=== PATIENT | female | born 1985 | race African-American/Black ===

== ENCOUNTER 2017-10-06 17:08 | Emergency (ER) | payer BC, OTHER ==
[2017-10-06 17:28] VITALS: BP 113/73; PULSE 108; TEMP 100.2; BMI 30.1
[2017-10-06] MEDS ORDERED: ACETAMINOPHEN 325 MG TABLET (FP) PO ONE (17:28)
--- NOTE | 2017-10-06 17:29 | PDOC ---
Rapid Medical Evaluation Time Seen by Provider: 10/06/17 17:24 Medical Evaluation: Allergies Allergy/AdvReac Type Severity Reaction Status Date / Time No Known Allergies Allergy Verified 10/06/17 17:23 10/06/17 17:24 Pt. is 6 weeks and states that she is having fevers and headaches for one day. Pt. took Tylenol at 11am with little relief of her symptoms. Pt just returned from [place] on Wednesday. Denies vaginal bleeding. Exam: ambulatory, Temp 100.3 Orders: tylenol Pt to proceed to the ED for further evaluation. Discharge Disposition - Diagnosis Fever Qualifiers: Fever type: unspecified Qualified Code(s): R50.9 - Fever, unspecified - Referrals - Patient Instructions - Post Discharge Activity
--- NOTE | 2017-10-06 17:49 | PDOC ---
History of Present Illness - General Chief Complaint: Headache Stated Complaint: FEVER/6 WKS Time Seen by Provider: 10/06/17 17:24 - History of Present Illness Initial Comments: 32 year old female [id number] 5-6 weeks by LMP presenting with fevers , chills, and headaches for the past two days. States that she recently returned from [facility] 4 days prior and experienced fevers 2 days prior which eventually brought on headaches, 10/06/17 18:03 Past History - Past Medical History Allergies/Adverse Reactions: Allergies Allergy/AdvReac Type Severity Reaction Status Date / Time Penicillins Allergy Severe Swelling Verified 10/06/17 17:24 - Suicide/Smoking/Psychosocial Hx Smoking History: Never smoked Hx Alcohol Use: No Drug/Substance Use Hx: No *Physical Exam - Vital Signs Last Vital Signs Temp Pulse Resp BP Pulse Ox 100.2 F H 108 H 18 113/73 98 10/06/17 17:24 10/06/17 17:24 10/06/17 17:24 10/06/17 17:24 10/06/17 17:24 *DC/Admit/Observation/Transfer Diagnosis at time of Disposition: Fever Qualifiers: Fever type: unspecified Qualified Code(s): R50.9 - Fever, unspecified - Referrals Referrals: ON STAFF,NOT [Primary Care Provider] - - Patient Instructions - Post Discharge Activity
[2017-10-06 19:06] LABS: URINE APPEARANCE CLEAR; URINE BILIRUBIN NEGATIVE (<2.0 mg/dL); URINE COLOR YELLOW; URINE GLUCOSE (UA) NEGATIVE (NEGATIVE); URINE KETONE NEGATIVE (NEGATIVE); URINE LEUK ESTERASE NEGATIVE (NEGATIVE); URINE NITRITE NEGATIVE (NEGATIVE); URINE PROTEIN NEGATIVE (NEGATIVE); URINE UROBILINOGEN NEGATIVE mg/dL (0.2-1.0)
[2017-10-06 19:08] LABS: HCG,QUALITATIVE URINE POSITIVE
[2017-10-06] MEDS ORDERED: ACETAMINOPHEN 325 MG TABLET (FP) ONE (19:20)
--- NOTE | 2017-10-06 19:33 | PDOC ---
Attending Attestation - Resident Resident Name: Justin Vinson - ED Attending Attestation I have performed the following: I have examined & evaluated the patient, The case was reviewed & discussed with the resident, I agree w/resident's findings & plan, Exceptions are as noted - Medical Decision Making 10/06/17 19:31 I, Dr. Kandi Eason, DO, attest that this document has been prepared under my direction and personally reviewed by me in its entirety. I further attest, that it accurately reflects all work, treatment, procedures and medical decision -making performed by me. 10/06/17 19:31 a/p: 32yo female at about 6 weeks with fever x 2 days -no sore throat, no rhinorrhea, no n/v/d -cramping -no vag discharge -no rashes/lesions -no vag bleeding -febrile in the ED -no cough/cp/sob -will send labs, ua -tvus -yeast infection on labs -will give tylenol -no rashes -will monitor and reassess <Kandi Eason - Last Filed: 10/06/17 19:31> - HPI HPI: 10/06/17 22:06 The patient is a 32-year-old female who approximately 6 weeks , , with no past medical history, who presents to the ED with 2 days of fever and headache. The patient reports that she recently got back from [place] on . The patient also endorses lower back pain and abdominal cramping. The patient denies any ear pain or neck pain. She denies any rashes. She denies any vaginal bleeding or vaginal discharge. She denies any nausea, vomiting, or diarrhea. She denies any shortness of breath or chest pain. Allergies: Penicillins - Physicial Exam PE: 10/06/17 22:07 GENERAL: (+)Warm to touch. Awake, alert, and fully oriented, in no acute distress HEAD: No signs of trauma EYES: PERRLA, EOMI, sclera anicteric, conjunctiva clear ENT: Auricles normal inspection, hearing grossly normal, nares patent, oropharynx clear without exudates. Moist mucosa NECK: Normal ROM, supple, no lymphadenopathy, JVD, or masses LUNGS: Breath sounds equal, clear to auscultation bilaterally. No wheezes, and no crackles HEART: (+)Tachycardic. Normal S1 and S2, no murmurs, rubs or gallops ABDOMEN: Soft, nontender, normoactive bowel sounds. No guarding, no rebound. No masses EXTREMITIES: Normal range of motion, no edema. No clubbing or cyanosis. No cords, erythema, or tenderness NEUROLOGICAL: Cranial nerves II through XII grossly intact. Normal speech, normal gait SKIN: Warm, Dry, normal turgor, no rashes or lesions noted PELVIC EXAM: No CMT. No adnexal tenderness. Scant, cheesy white discharge consistent with yeast infection. <Luana Jones - Last Filed: 10/06/17 22:10> Attestations - Attestations 10/06/17 22:10 Documentation prepared by Luana Jones, acting as medical registrar for Kandi Eason DO. <Luana Jones - Last Filed: 10/06/17 22:10>
[2017-10-06 20:45] LABS: ALBUMIN 3.8 g/dl (3.4-5.0); ANION GAP 9 (8-16); BLOOD UREA NITROGEN 6 mg/dL (7-18); CALCIUM 9.1 mg/dL (8.5-10.1); CHLORIDE 105 mmol/L (98-107); CO2 24 mmol/L (21-32); GLUCOSE,RANDOM 94 mg/dL (74-106); SGPT/ALT 27 U/L (12-78); SODIUM 138 mmol/L (136-145)
[2017-10-06 20:59] LABS: BASO % 0.5 % (0-2.0); EOS % 0.7 % (0-4.5); HEMATOCRIT 36.2 % (32.4-45.2); HEMOGLOBIN 12.5 GM/dL (10.7-15.3); LYMPH % 16.3 % (8-40); MCH 28.3 pg (25.7-33.7); MCHC 34.5 g/dl (32.0-36.0); MEAN PLT VOLUME 8.1 fl (7.5-11.1); MONO % 8.7 % (3.8-10.2); NEUT % 73.8 % (42.8-82.8); PLATELET COUNT 199 K/MM3 (134-434); RBC 4.42 M/mm3 (3.60-5.2); RDW 13.5 % (11.6-15.6); WHITE BLOOD COUNT 7.7 K/mm3 (4.0-10.0)
--- NOTE | 2017-10-06 21:00 | PDOC ---
*Physical Exam - Vital Signs Last Vital Signs Temp Pulse Resp BP Pulse Ox 100.2 F H 108 H 18 113/73 98 10/06/17 17:24 10/06/17 17:24 10/06/17 17:24 10/06/17 17:24 10/06/17 17:24 - Physical Exam Comments: 10/06/17 20:56 TVUS report - 10/06/17 20:59 ED Treatment Course - LABORATORY CBC & Chemistry Diagram: 10/06/17 19:45 10/06/17 19:45 - ADDITIONAL ORDERS Additional order review: Laboratory Results 10/06/17 10/06/17 19:45 18:47 Urine Color Yellow Urine Appearance Clear Urine pH 6.0 Ur Specific [place] 1.012 Urine Protein Negative Urine Glucose (UA) Negative Urine Ketones Negative Urine Blood Negative Urine Nitrite Negative Urine Bilirubin Negative Urine Urobilinogen Negative Ur Leukocyte Esterase Negative Urine HCG, Qual Positive Blood Type Cancelled Antibody Screen Cancelled - Medications Given in the ED: ED Medications Discontinued Medications Generic Name Dose Route Start Last Admin Trade Name Elsie PRN Reason Stop Dose Admin Acetaminophen 650 mg 10/06/17 17:28 10/06/17 19:52 Tylenol - PO 10/06/17 17:29 650 mg ONCE ONE Administration Progress Note - Progress Note Progress Note: 32 year old female A1 presenting for headache and fever x2 days. Pt recently traveled to [place] 09/28-10/02. She admits to nausea, vomiting. She denies abdominal pain, diarrhea, chest pain, shortness of breath. TVUS - EXAM#: TYPE/EXAM: RESULT: [id number] US/TRANSVAGINAL ULTRASOUND US HISTORY PROVIDED: Cramping. Real time examination of the pelvis utilizing the transvaginal probe demonstrates the following: The uterus is normal in size measuring 8.9 x 5.4 x 5.6 cm. No uterine masses are seen. Within the endometrial cavity, there is a small fluid collection that may represent an early gestational sac. Mean sac diameter measurements are consistent with a gestation of less than 5 weeks. Correlation with serial beta subunit hCG levels and follow-up ultrasonography is now recommended. There is an additional irregular fluid collection near the gestational sac. This could represent a small subchorionic bleed. The right ovary is normal in size and texture with arterial flow documented to the ovary. The left ovary could not be identified. There is no evidence adnexal masses or free pelvic fluid collections. IMPRESSION : Possible early IUP. Clinical and laboratory correlation and follow-up ultrasonography recommended. Please see above discussion. Reported By: Umberto Peterson MD 10/06/172050 *DC/Admit/Observation/Transfer Diagnosis at time of Disposition: Fever Qualifiers: Fever type: unspecified Qualified Code(s): R50.9 - Fever, unspecified - Discharge Dispostion Disposition: HOME Condition at time of disposition: Good Decision to Admit order: No - Prescriptions Prescriptions: Clotrimazole [Gyne-Lotrimin -] 1 applic VG DAILY #7 tube - Referrals Referrals: ON STAFF,NOT [Primary Care Provider] - - Patient Instructions Printed Discharge Instructions: DI for Vaginal Yeast Infection Additional Instructions: You were seen today for fever and headache. You have a vaginal yeast infection. I sent a prescription to treat your yeast infection to your pharmacy. Your b-HCG level was 1146.5 today. You do not have UTI. You need to return to this Emergency Department in 2 days so that we can recheck your b-HCG level. Do not go to a different Emergency Department. You can take tylenol for fever. Please follow up with your primary care doctor within 7 day and bring the paperwork given to you today with you. Please follow up with your OBGYN within 7 days and bring the paperwork given to you today with you. Please return prior to two days from now to the Emergency Department for any new , worsening or concerning symptoms. - Post Discharge Activity
[2017-10-06 21:01] LABS: ALK PHOS 62 U/L (45-117); BILIRUBIN,TOTAL 0.4 mg/dL (0.2-1.0)
[2017-10-06 21:03] LABS: SGOT/AST 26 U/L (15-37)
== END 2017-10-06 21:31 | disposition home or self-care (01) ==
LOC: JER 17:08
DX: O26.891 Other specified pregnancy related conditions, first trimester (principal); Z3A.01 Less than 8 weeks gestation of pregnancy; R50.9 Fever, unspecified
CPT/HCPCS: 36415; 76830-TC; 80053; 81003; 84702; 84703; 85025; 87086; 99282-25

== ENCOUNTER 2019-04-02 19:43 | Emergency (ER) | payer BC, OTHER ==
[2019-04-02 20:07] VITALS: BP 117/82; PULSE 113; TEMP 101.4; BMI 32.0
[2019-04-02] MEDS ORDERED: ACETAMINOPHEN 325 MG TABLET (FP) PO ONE (20:17)
[2019-04-02] MEDS ORDERED: ACETAMINOPHEN 325 MG TABLET (FP) ONE (20:19)
[2019-04-02] MEDS ORDERED: IBUPROFEN 600 MG TABLET (FP) PO ONE ×2 (21:32→21:41)
--- NOTE | 2019-04-02 21:38 | PDOC ---
History of Present Illness - General Chief Complaint: Sore Throat Stated Complaint: FEVER Time Seen by Provider: 04/02/19 21:04 History Source: Patient Exam Limitations: No Limitations - History of Present Illness Initial Comments: 04/02/19 21:54 HISTORY OF PRESENT ILLNESS: 33-year-old woman denies medical history presents emergency department for evaluation of fevers, nasal congestion, sore throat, moist productive cough and body aches. 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 Child's daughter is also here for evaluation of similar symptoms which started 24 hours after the patient. No recent travel. PAST MEDICAL HISTORY: Denies past medical history SURGICAL HISTORY: Denies ALLERGIES: Penicillin REVIEW OF SYSTEMS General/Constitutional: +fever. Denies weakness, weight change. HEENT: Denies change in vision. Denies ear pain or discharge. +sore throat. Cardiovascular: Denies chest pain or shortness of breath. Respiratory: Moist productive cough. Denies wheezing, or hemoptysis. Gastrointestinal: Denies nausea, vomiting, diarrhea or constipation. Denies rectal bleeding. Genitourinary: Denies dysuria, frequency, or change in urination. Musculoskeletal: +myalgias. Denies neck or back pain. Skin and breasts: Denies rash or easy bruising. Neurologic: Denies headache, vertigo, loss of consciousness, or loss of sensation. Psychiatric: Denies depression or anxiety. Endocrine: Denies increased thirst. Denies abnormal weight change. Hematologic/Lymphatic: Denies anemia, easy bleeding, or history of blood clots. Allergic/Immunologic: Denies hives or skin allergy. Denies latex allergy. PHYSICAL EXAM General Appearance: Well-appearing, appropriately dressed. No apparent distress , no intoxication. HEENT: EOMI, PERRLA, normal voice, TMs retracted bilaterally. No conjunctival pallor. No photophobia, scleral icterus. Oropharynx erythematous without lesions or exudate. Cobblestoning noted in the posterior. No nasal discharge present. Neck: Supple. Trachea midline. No tenderness, rigidity, carotid bruit, stridor , or thyromegaly. Nontender anterior cervical lymphadenopathy present. Respiratory/Chest: Lungs CTAB. No shortness of breath, chest tenderness, respiratory distress, accessory muscle use. No crackles, rales, rhonchi, stridor , wheezing, dullness Cardiovascular: RRR. S1, S2. No JVD, murmur, bradycardia, tachycardia. Vascular Pulses: Dorsalis-Pedis (R): 2+, Dorsalis-Pedis (L): 2+ Gastrointestinal/Abdominal: Normal bowel sounds. Abdomen soft, non-distended. No tenderness or rebound tenderness. No organomegaly, pulsatile mass, guarding, hernia, hepatomegaly, splenomegaly. Musculoskeletal/Extremities: Normal inspection. FROM of all extremities, normal capillary refill. Pelvis Stable. No CVA tenderness. No tenderness to extremities, pedal edema, swelling, erythema or deformity. Integumentary: Appropriate color, dry, warm. No cyanosis, erythema, jaundice or rash Neurologic: gourmet coffee attendant II-XII intact. Fully oriented, alert. Appropriate mood/affect. Motor strength 5/5. No appreciable EOM palsy, facial droop or sensory deficit. Past History - Past Medical History Allergies/Adverse Reactions: Allergies Allergy/AdvReac Type Severity Reaction Status Date / Time Penicillins Allergy Severe Swelling Verified 10/06/17 17:24 Home Medications: Ambulatory Orders Clotrimazole [Gyne-Lotrimin -] 1 applic VG DAILY #7 tube 10/06/17 COPD: No - Immunization History Immunization Up to Date: Yes - Psycho Social/Smoking Cessation Hx Smoking History: Never smoked Hx Alcohol Use: No Drug/Substance Use Hx: No *Physical Exam - Vital Signs Last Vital Signs Temp Pulse Resp BP Pulse Ox 101.4 F H 113 H 18 117/82 100 04/02/19 20:04 04/02/19 20:04 04/02/19 20:04 04/02/19 20:04 04/02/19 20:04 ED Treatment Course - Medications Given in the ED: ED Medications Discontinued Medications Generic Name Dose Route Start Last Admin Trade Name Freq PRN Reason Stop Dose Admin Acetaminophen 975 mg 04/02/19 20:17 04/02/19 20:21 Tylenol - PO 04/02/19 20:18 975 mg NOW ONE Administration Medical Decision Making - Medical Decision Making 04/02/19 21:52 A/P: 33-year-old woman with 3 days of influenza-like illness Given high likelihood of influenza positive testing I will defer testing at this time. As explained to the patient that treatment of influenza is supportive in nature with the potential addition of Tamiflu. Patient requested information about Tamiflu and when side effects were explained patient believe the risks did not outweigh the benefits of receiving the medication. Motrin 600 mg orally now Tylenol 1 g orally now Discharge home Discharge - Discharge Information Problems reviewed: Yes Clinical Impression/Diagnosis: Influenza-like illness Condition: Stable Disposition: HOME - Admission No - Follow up/Referral - Patient Discharge Instructions Additional Instructions: Rest, drink lots of fluids: Teas, water, soups, Pedialyte Saltwater gargles Steamy showers/seem to face break up mucus Avoid contact with others until fevers and cough resolved Lots of handwashing and good hygiene Continue [id number] medications for symptomatic relief Tylenol or Motrin for fever and pain Followup with private physician in one to 2 days as needed Return to emergency department for worsened symptoms, fevers, dehydration - Post Discharge Activity Work/Back to School Note: Back to Work
== END 2019-04-02 21:45 | disposition home or self-care (01) ==
LOC: JERFT 19:43
DX: J11.1 Influenza due to unidentified influenza virus with other respiratory manifestations (principal); Z88.0 Allergy status to penicillin
CPT/HCPCS: 99281-25

== ENCOUNTER 2021-03-20 19:10 | Emergency (ER) | payer BC, OTHER ==
[2021-03-20 19:20] VITALS: BP 140/89; PULSE 78; TEMP 98.3; BMI 31.1
[2021-03-20 21:28] LABS: BASO % 0.9 % (0-2.0); EOS % 6.2 % (0-4.5); HEMATOCRIT 38.5 % (32.4-45.2); HEMOGLOBIN 13.2 GM/dL (10.7-15.3); MCHC 34.2 g/dl (32.0-36.0); MEAN PLT VOLUME 7.9 fl (7.5-11.1); NEUT % 44.9 % (42.8-82.8); PLATELET COUNT 207 10^3/uL (134-434); WHITE BLOOD COUNT 4.7 K/mm3 (4.0-10.0)
[2021-03-20 21:48] LABS: CHLORIDE 105 mmol/L (98-107); SODIUM 139 mmol/L (136-145)
[2021-03-20 21:50] LABS: ALBUMIN 4.2 g/dl (3.4-5.0); ANION GAP 6 MMOL/L (8-16); BLOOD UREA NITROGEN 17.5 mg/dL (7-18); CALCIUM 9.6 mg/dL (8.5-10.1); CO2 28 mmol/L (21-32)
[2021-03-20 21:51] LABS: GLUCOSE,RANDOM 90 mg/dL (74-106)
[2021-03-20 21:54] LABS: CREATININE 1.1 mg/dL (0.55-1.3); SGOT/AST 20 U/L (15-37); SGPT/ALT 26 U/L (13-61)
[2021-03-20 21:55] LABS: BILIRUBIN,TOTAL 0.2 mg/dL (0.2-1); TOT PROT 8.5 g/dl (6.4-8.2)
[2021-03-20 21:56] LABS: ALK PHOS 65 U/L (45-117)
== END 2021-03-20 22:47 | disposition home or self-care (01) ==
LOC: JER 19:10
DX: S29.011A Strain of muscle and tendon of front wall of thorax, initial encounter (principal); Y99.8 Other external cause status
CPT/HCPCS: 36415; 71046-TC-FY; 80053; 84484; 84703; 85025; 93005; 93010; 99285-25